=== PATIENT | male | born 1935 | race Caucasian/White ===

== ENCOUNTER 2022-06-09 10:48 | Emergency (ER) | payer MEDICARE ==
[~2022-06-09] VITALS: Ht 165.1 cm; Wt 88.5 kg
[2022-06-09] MEDS ORDERED: MOLN200C PO (14:05)
[2022-06-09 14:18] VITALS: BP 132/61
== END 2022-06-09 14:19 | disposition home or self-care (01) ==
LOC: EDH 10:48
DX: U07.1 COVID-19 (principal); E11.9 Type 2 diabetes mellitus without complications; I10 Essential (primary) hypertension; Z90.49 Acquired absence of other specified parts of digestive tract
CPT/HCPCS: 99283; 87635; 87804 ×2; C9803